=== PATIENT | male | born 1955 | race Caucasian/White ===

== ENCOUNTER 2017-05-31 08:52 | Day surgery (SDC) | payer SELFPAY ==
[2017-05-23 15:56] LABS: Absolute Lymphocytes (CBC) 1.4 K/uL (0.7-4.9); Absolute Monocytes 0.7 K/uL (0.1-1.3); Absolute Neutrophil 4.5 K/uL (1.8-8.0); Basophils % 0.8 % (0-1.3); Hematocrit 41.3 % (39.6-49.0); Lymphocytes % 19.3 % (15.3-44.8); MCH 28.9 pg (27.0-35.0); MCV 86.3 fL (80-100); MPV 7.2 fL (7.6-11.3); Monocytes % 8.9 % (3.3-12.3); RBC Red Blood Cell Count 4.78 M/uL (4.33-5.43)
[~2017-05-31 08:52] MED LIST: CEFAZOLIN/SWI 2gm 2 GM/20 ML SYR IV SCH
[2017-05-31] MEDS ORDERED: Ringers Lactate 1,000 ML IV ONE ×2 (09:16→11:27)
[2017-05-31] MEDS ORDERED: BUPIVACAINE 0.25% PF 10 ML VIAL ONE (09:39)
[2017-05-31] MEDS ORDERED: GLYCOPYRROLATE 0.2 MG/ML SYR ONE (09:51)
[2017-05-31] MEDS ORDERED: MIDAZOLAM HCL 2 MG/2 ML INJ ONE (09:51)
[2017-05-31] MEDS ORDERED: PROPOFOL 200 MG/20 ML VIAL IV ONE (09:51)
[2017-05-31] MEDS ORDERED: FENTANYL CITR 250 MCG/5 ML ONE (09:52)
[2017-05-31] MEDS ORDERED: LIDOCAINE 2% MPF 5 ML VIAL ONE (09:52)
[2017-05-31] MEDS ORDERED: ONDANSETRON 4 MG/2 ML VIAL ONE (09:52)
[2017-05-31] MEDS ORDERED: ROCURONIUM 50 MG/5 ML VIAL IV ONE ×3 (09:55→11:37)
[2017-05-31] MEDS ORDERED: NEOSTIGMINE 1 MG/ML -5 ML SYRINGE ONE (09:56)
--- NOTE | 2017-05-31 13:11 | P.OP ---
Preoperative diagnosis: Recurrent Ventral Hernia Postoperative diagnosis: Recurrent Ventral Hernia Primary procedure: Laparoscopic Ventral Hernia Secondary procedure: Laparoscopic Adhesiolysis <2hrs Anesthesia: GETA +Local Estimated blood loss: <10cc Specimen: None Findings: Large complex ventral hernia, thick fibrous adhesions Complications: None Transferred to: Recovery Room Condition: Good
[2017-05-31] MEDS: MEPERIDINE HCL 50 MG/ML AMP ONE ×2 (13:31→13:46)
[2017-05-31] MEDS ORDERED: MEPERIDINE HCL 25 MG/0.5 ML ONE (13:34)
[2017-05-31] MEDS: MIDAZOLAM HCL 2 MG/2 ML INJ ONE ×3 (13:38→14:01)
[2017-05-31] MEDS ORDERED: DEXAMETHASONE 4 MG/ML VIAL ONE (14:24)
[2017-05-31] MEDS ORDERED: KETOROLAC 30 MG/ML INJ ONE (14:24)
--- NOTE | 2017-05-31 14:26 | OP ---
Date of Procedure: 05/31/2017 Surgeon: Shmuel Bond MD, Preoperative Diagnosis: Recurrent complex ventral abdominal hernia. Postoperative Diagnosis: Recurrent complex ventral abdominal hernia. Procedure Performed: Laparoscopic ventral hernia repair with mesh. Secondary Procedure: Laparoscopic adhesiolysis, greater than 2 hours. Anesthesia: General endotracheal plus local. Estimated Blood Loss: Less than 10 cc. Specimen: None. Findings: Large complex ventral hernia and thick fibrous adhesions. Complications: None. Disposition: Transferred to recovery room in good condition. Procedure In Detail: After informed consent was obtained, the patient was brought to the operating r oom and prepped and draped in the usual fashion. After adequate anesthesia was achieved, a left uppe r quadrant incision was made after appropriately anesthetizing the skin and a 5-mm, 0-degree optical trocar was introduced into the abdomen without evidence of complication. Insufflation was obtained t o 15 mmHg at this time noted but there was no injury to vital structure upon entry to the abdomen. T here were thick fibrous adhesions immediately encountered, which required blunt dissection with the c amera lens itself until visualization could be complete. This continued until left trocar position c ould be seen in the left lower quadrant. After this was appropriately anesthetized, sharply incised, a 5-mm trocar was introduced in the abdomen without evidence of complication. Insufflation was main tained to 15 at this time. I then used the LigaSure device to bluntly and sharply take down signific ant adhesions for approximately 2 hours. I continued dissecting free all the way up to the complex v entral abdominal wall hernia in the midline, where a previous mesh was placed. I continued to dissec t around superficially, and in the epigastric position, I placed another 5 mm trocar under direct vis ualization without evidence of complication. I continued dissection around circumferentially until e ventually I placed a right upper quadrant 5 mm trocar under direct visualization without evidence of complication. I continued dissection down until I placed a right lower quadrant trocar under direct visualization without evidence of complication. I then up-sized to the left upper quadrant incision to a 15-mm trocar under direct visualization without evidence of complication. I continued the adhes iolysis till all the hernia tissue was taken down. There was no injury to vital structures and no woody wel injury appreciated during this. There was no spillage of any enteric contents. After the intest ine and omentum were returned to the normal anatomic position, I then skeletonized and cleaned off al l the hernias and sized them. They were found to be approximately 18 cm x approximately 15 cm. I th en found a 20/25-cm oval Ventralight ST mesh with Echo positioning system placed through the 15 mm la teral trocar and positioned to the center of the hernia defect and a small stab incision was made in the center of the hernia defect and the cord was brought up and inflated at this time. The mesh was then positioned appropriately and secured using securing ReliaTack absorbable fixation tacks circumfe rentially around and the left lateral 15 mm port was found to be in close proximity to the mesh, and therefore, it was removed at this time and the trocar site was closed with a Jd-Willem suture p assing using 0 Vicryl in an interrupted fashion. I removed the green balloon system after appropriat shaylee cutting it at the skin level through the inflation tubing to the left lower quadrant incision usi ng the 5 mm trocar as a sheath. After this was removed, re-insufflation was obtained and the area wa s inspected. The ReliaTack fixation device was then used to place a double crown fixation system nuzhat und circumferentially with good approximation of the mesh under 11 mmHg of insufflation. After this was performed, the area was inspected and found to be in good approximation circumferentially. The a bdomen was then completely desufflated under direct visualization without evidence of complication. All trocars were then removed. All skin incisions were copiously irrigated and closed with a 4-0 Mon ocryl in a running fashion. Dermabond placed over top. The patient tolerated the procedure well wit hout evidence of complication and transferred to PACU in good condition. All counts were correct at the end of the case. FARZANA/STEPHEN Voice ID: [id number] Report ID: [id number]
[2017-05-31] MEDS ORDERED: MEPERIDINE HCL 50 MG/ML AMP ONE (14:35)
[2017-05-31] MEDS ORDERED: HYDROCODONE/APAP 7.5/325 MG TAB ONE (16:02)
[2017-05-31 16:51] VITALS: BP 126/70; TEMP 97.8; O2SAT 95
== END 2017-05-31 16:43 | disposition home or self-care (01) ==
LOC: OR 08:52
PROVIDERS: ATTEND Surgery
PROC: 0DNW4ZZ Release Peritoneum, Percutaneous Endoscopic Approach (ICD-10-PCS; 2017-05-31)
PROC: 0WUF4JZ Supplement Abdominal Wall with Synthetic Substitute, Percutaneous Endoscopic Approach (ICD-10-PCS; principal; 2017-05-31 10:15)
DX: K43.2 Incisional hernia without obstruction or gangrene (principal); K66.0 Peritoneal adhesions (postprocedural) (postinfection); I10 Essential (primary) hypertension; G47.30 Sleep apnea, unspecified; E78.5 Hyperlipidemia, unspecified; E78.00 Pure hypercholesterolemia, unspecified; J45.909 Unspecified asthma, uncomplicated; K21.9 Gastro-esophageal reflux disease without esophagitis; Z90.49 Acquired absence of other specified parts of digestive tract; Z88.6 Allergy status to analgesic agent; Z80.42 Family history of malignant neoplasm of prostate
CPT/HCPCS: 36415; 80051; 82565; 84520; 85025; J0690; J2175; J2250; J2405; J2710

== ENCOUNTER 2019-02-08 09:24 | Emergency (ER) | payer OTHER ==
--- NOTE | 2019-02-08 10:20 | RAD REPORT ---
EXAM DESCRIPTION: CT - Stone Protocol - 02/08/2019 9:45 am CLINICAL HISTORY: Flank pain. left flank pain COMPARISON: Abdomen Pelvis W Contrast dated 04/17/2017 TECHNIQUE: Axial images were obtained without oral or IV contrast. Lack of contrast limits solid org an and vascular assessment. The [id number] spans the entirety of the system partially obscuring uppermost abdomen and lung bases. Coronal reformatted images were obtained and reviewed. All CT scans are performed using dose optimization technique as appropriate and may include automated exposure control or mA/KV adjustment according to patient size. FINDINGS: The lower lung cool are clear. Cholecystectomy clips. Imaged portions of the liver and spleen show no suspicious findings on non-contrast imaging. The panc reas and adrenal glands are normal. No pathologic lymphadenopathy in the abdomen or pelvis. No urinary tract stones or obstructive uropathy. No bowel obstruction, free air, free fluid or abscess. Postsurgical changes are present about the rec tosigmoid colon.The appendix is not visualized. Moderate lumbar degenerative changes. IMPRESSION: No urinary tract stones or obstructive uropathy.
--- NOTE | 2019-02-08 10:28 | ER ---
Nurse's Notes [facility] Name: Israel Amador Age: 63 yrs Sex: Male : 1955 Arrival Date: 02/08/2019 Time: 09:26 Bed 8 Private MD: Diagnosis: Low back pain Presentation: 02/08 09:35 Presenting complaint: Patient states: back pain 3-4 days ago, more on the lower left ca1 and radiates to the L leg. Has gotten worse today. "It hurts to bend when I put on my socks today". Transition of care: patient was not received from another setting of care. Onset of symptoms was February 05, 2019. Risk Assessment: Do you want to hurt yourself or someone else? Patient reports no desire to harm self or others. Initial Sepsis Screen: Does the patient meet any 2 criteria? No. Patient's initial sepsis screen is negative. Does the patient have a suspected source of infection? No. Patient's initial sepsis screen is negative. Care prior to arrival: None. 09:35 Method Of Arrival: Ambulatory ca1 09:35 Acuity: RUBY 3 ca1 Triage Assessment: 09:39 General: Appears in no apparent distress. uncomfortable, Behavior is calm, cooperative, ca1 appropriate for age. Pain: Complains of pain in left low back Pain radiates to left leg Pain currently is 9 out of 10 on a pain scale. Quality of pain is described as sharp, Pain began 4 days ago Is continuous. Pain: Aggravated by repositioning. EENT: No deficits noted. No signs and/or symptoms were reported regarding the EENT system. Neuro: Level of Consciousness is awake, alert, obeys commands, Oriented to person, place, time, situation, Appropriate for age. Cardiovascular: Heart tones S1 S2 present. Respiratory: Airway is patent Respiratory effort is even, unlabored, Respiratory pattern is regular, symmetrical, Breath sounds are clear bilaterally. GI: Abdomen is flat, non-distended, Bowel sounds present X 4 quads. Abd is soft and non tender X 4 quads. : No deficits noted. No signs and/or symptoms were reported regarding the genitourinary system. Derm: Skin is intact, is healthy with good turgor, Skin is pink, warm \\T\\ dry. Musculoskeletal: Circulation, motion, and sensation intact. Capillary refill < 3 seconds, Range of motion: intact in all extremities. Historical: - Allergies: 09:39 No Known Allergies; ca1 - PMHx: 09:39 High Cholesterol; Sleep Apnea; Hypertension; Prostate Cancer; ca1 - PSHx: 09:39 Cholecystectomy; Appendectomy; Colon Removed; ca1 - Immunization history:: Adult Immunizations up to date, Pneumococcal vaccine is not up to date, Flu vaccine is up to date. - Social history:: Smoking status: Patient/guardian denies using tobacco. - Ebola Screening: : Patient negative for fever greater than or equal to 101.5 degrees Fahrenheit, and additional compatible Ebola Virus Disease symptoms Patient denies exposure to infectious person Patient denies travel to an Ebola-affected area in the 21 days before illness onset No symptoms or risks identified at this time. Screenin:42 Abuse screen: Denies threats or abuse. Denies injuries from another. Nutritional ca1 screening: No deficits noted. Tuberculosis screening: No symptoms or risk factors identified. Tuberculosis screening: Never had TB. Fall Risk None identified. Assessment: 09:41 Reassessment: SEE TRIAGE NOTES. General:. Neuro: Level of Consciousness is awake, ca1 alert, obeys commands, Oriented to person, place, time, situation. 10:12 Reassessment: Patient appears in no apparent distress at this time. Patient is alert, ca1 oriented x 3, equal unlabored respirations, skin warm/dry/pink. Pending CT result. Reported pain med is helping. Pain scale 6/10. Vital Signs: 09:39 BP 158 / 92; Pulse 69; Resp 16 S; Pulse Ox 97% on R/A; Weight 108.86 kg (R); Height 6 ca1 ft. 1 in. (185.42 cm) (R); Pain 9/10; 10:14 BP 165 / 92; Pulse 62; Resp 17 S; Pulse Ox 95% on R/A; Pain 6/10; ca1 10:27 Pain 5/10; ca1 09:39 Body Mass Index 31.66 (108.86 kg, 185.42 cm) ca1 ED Course: 09:26 Patient arrived in ED. as 09:29 Kailey Muhammad FNP-C [facility]. kb 09:29 Kin Farley MD is Attending Physician. kb 09:29 Ami Trujillo RN is Primary Nurse. ca1 09:38 Triage completed. ca1 09:39 Arm band placed on right wrist. ca1 09:42 Patient has correct armband on for positive identification. Bed in low position. Call ca1 light in reach. Side rails up X 1. Pulse ox on. NIBP on. 09:42 No provider procedures requiring assistance completed. ca1 09:45 CT completed. Patient tolerated procedure well. Patient moved back from CT. mw3 09:46 CT Stone Protocol In Process Unspecified. EDMS 10:12 Urine collected: clean catch specimen, clear, Amount Voided: 45mL. ca1 10:31 Patient did not have IV access during this emergency room visit. ca1 Administered Medications: 09:55 Drug: TORadol 30 mg Route: IM; Site: right deltoid; ca1 10:27 Follow up: Pain 5/10 Adult; Response: No adverse reaction; Pain is decreased ca1 Outcome: : Discharge ordered by MD. kb 10:31 Discharged to home ambulatory. ca1 10:31 Condition: stable 10:31 Discharge instructions given to patient, Instructed on discharge instructions, follow up and referral plans. medication usage, Demonstrated understanding of instructions, follow-up care, medications, Prescriptions given X 2. 10:31 Patient left the ED. ca1 Signatures: Dispatcher [employer] EDMS Kailey Muhammad, DRAW OPERATOR-C DRAW OPERATOR-Franchesca Ramos Michelle mw3 Ami Trujillo RN RN ca1 Corrections: (The following items were deleted from the chart) 10:14 10:12 Reassessment: Patient appears in no apparent distress at this time. Patient is ca1 alert, oriented x 3, equal unlabored respirations, skin warm/dry/pink. Pending CT result ca1
--- NOTE | 2019-02-08 10:28 | EDPHYS ---
Physician Documentation [facility] Name: Israel Amador Age: 63 yrs Sex: Male : 1955 Arrival Date: 02/08/2019 Time: 09:26 Bed 8 Private MD: ED Physician Kin Farley HPI: 02/08 10:25 This 63 yrs old Male presents to ER via Ambulatory with complaints of Back kb Pain. 10:25 The patient presents with pain that is acute, with no known mechanism of injury. The kb symptoms are located in the left low back. Onset: The symptoms/episode began/occurred 4 day(s) ago. The pain does not radiate. Associated signs and symptoms: The patient has no apparent associated signs or symptoms. The problem was sustained from unknown cause. Modifying factors: The patient symptoms are alleviated by nothing, the patient symptoms are aggravated by bending. Severity of symptoms: At their worst the symptoms were moderate, in the emergency department the symptoms are unchanged. The patient has not experienced similar symptoms in the past. The patient has not recently seen a physician. Historical: - Allergies: 09:39 No Known Allergies; ca1 - PMHx: 09:39 High Cholesterol; Sleep Apnea; Hypertension; Prostate Cancer; ca1 - PSHx: 09:39 Cholecystectomy; Appendectomy; Colon Removed; ca1 - Immunization history:: Adult Immunizations up to date, Pneumococcal vaccine is not up to date, Flu vaccine is up to date. - Social history:: Smoking status: Patient/guardian denies using tobacco. - Ebola Screening: : Patient negative for fever greater than or equal to 101.5 degrees Fahrenheit, and additional compatible Ebola Virus Disease symptoms Patient denies exposure to infectious person Patient denies travel to an Ebola-affected area in the 21 days before illness onset No symptoms or risks identified at this time. ROS: 10:24 Constitutional: Negative for fever, chills, and weight loss, Neck: Negative for injury, kb pain, and swelling, Cardiovascular: Negative for chest pain, palpitations, and edema, Respiratory: Negative for shortness of breath, cough, wheezing, and pleuritic chest pain, Abdomen/GI: Negative for abdominal pain, nausea, vomiting, diarrhea, and constipation, : Negative for injury, bleeding, discharge, and swelling, MS/Extremity: Negative for injury and deformity, Skin: Negative for injury, rash, and discoloration, Neuro: Negative for headache, weakness, numbness, tingling, and seizure. 10:24 Back: Positive for pain at rest, pain with movement, of the left low back. Exam: 10:24 Constitutional: This is a well developed, well nourished patient who is awake, alert, kb and in no acute distress. Head/Face: Normocephalic, atraumatic. Chest/axilla: Normal chest wall appearance and motion. Nontender with no deformity. No lesions are appreciated. Cardiovascular: Regular rate and rhythm with a normal S1 and S2. No gallops, murmurs, or rubs. Normal PMI, no JVD. No pulse deficits. Respiratory: Lungs have equal breath sounds bilaterally, clear to auscultation and percussion. No rales, rhonchi or wheezes noted. No increased work of breathing, no retractions or nasal flaring. Abdomen/GI: Soft, non-tender, with normal bowel sounds. No distension or tympany. No guarding or rebound. No evidence of tenderness throughout. Skin: Warm, dry with normal turgor. Normal color with no rashes, no lesions, and no evidence of cellulitis. MS/ Extremity: Pulses equal, no cyanosis. Neurovascular intact. Full, normal range of motion. Neuro: Awake and alert, GCS 15, oriented to person, place, time, and situation. Cranial nerves II-XII grossly intact. Motor strength 5/5 in all extremities. Sensory grossly intact. Cerebellar exam normal. Normal gait. 10:24 Back: pain, that is moderate, ROM is painful, "bending over to put shoes on". normal spinal alignment noted, vertebral tenderness, is not appreciated. Vital Signs: 09:39 BP 158 / 92; Pulse 69; Resp 16 S; Pulse Ox 97% on R/A; Weight 108.86 kg (R); Height 6 ca1 ft. 1 in. (185.42 cm) (R); Pain 9/10; 10:14 BP 165 / 92; Pulse 62; Resp 17 S; Pulse Ox 95% on R/A; Pain 6/10; ca1 10:27 Pain 5/10; ca1 09:39 Body Mass Index 31.66 (108.86 kg, 185.42 cm) ca1 MDM: 09:29 Patient medically screened. kb 10:24 Data reviewed: vital signs, nurses notes. Data interpreted: Pulse oximetry: on room air kb is 95 %. Interpretation: normal. Counseling: I had a detailed discussion with the patient and/or guardian regarding: the historical points, exam findings, and any diagnostic results supporting the discharge/admit diagnosis, radiology results, the need for outpatient follow up, a family practitioner, to return to the emergency department if symptoms worsen or persist or if there are any questions or concerns that arise at home. 02/08 10:13 Order name: Urine Dipstick--Ancillary (enter results) eb 02/08 09:35 Order name: CT Stone Protocol; Complete Time: 10:24 kb 02/08 09:35 Order name: Urine Dipstick-Ancillary (obtain specimen); Complete Time: 10:10 kb Administered Medications: 09:55 Drug: TORadol 30 mg Route: IM; Site: right deltoid; ca1 10:27 Follow up: Pain 5/10 Adult; Response: No adverse reaction; Pain is decreased ca1 Disposition: 17:41 Co-signature as Attending Physician, Kin Farley MD Did not see or evaluate the ps1 patient. Signing the chart for administrative purposes. Not an endorsement of care provided. . Disposition: 02/08/19 10:27 Discharged to Home. Impression: Low back pain. - Condition is Stable. - Discharge Instructions: Back Pain, Adult, [id number], Back Exercises, [id number]. - Prescriptions for Cyclobenzaprine 10 mg Oral Tablet - take 1 tablet by ORAL route every 8 hours As needed; 21 tablet. Diclofenac Sodium 75 mg Oral Tablet, Delayed Release (E.C.) - take 1 tablet by ORAL route 2 times per day As needed; 30 tablet. - Medication Reconciliation Form, Thank You Letter, Antibiotic Education, Prescription Opioid Use form. - Follow up: Emergency Department; When: As needed; Reason: Worsening of condition. Follow up: Private Physician; When: 2 - 3 days; Reason: Recheck today's complaints, Continuance of care, Re-evaluation by your physician. Signatures: Dispatcher [employer] Kailey Kang, Kin Bergeron MD MD ps1 Ami Trujillo RN RN ca1 Corrections: (The following items were deleted from the chart) 10:31 10:27 02/08/2019 10:27 Discharged to Home. Impression: Low back pain. Condition is ca1 Stable. Forms are Medication Reconciliation Form, Thank You Letter, Antibiotic Education, Prescription Opioid Use. Follow up: Emergency Department; When: As needed; Reason: Worsening of condition. Follow up: Private Physician; When: 2 - 3 days; Reason: Recheck today's complaints, Continuance of care, Re-evaluation by your physician. kb
[2019-02-08 10:46] VITALS: BP 165/92; O2SAT 95
[2019-02-08 11:48] LABS: Urine Blood NEGATIVE (NEG); Urine Glucose NEGATIVE (NEG); Urine Protein NEGATIVE (NEG); Urine Specific Gravity 1.025 (1.005-1.030); Urine pH 5.5 (5.0-7.0)
== END 2019-02-08 10:31 | disposition home or self-care (01) ==
LOC: ER 09:24
DX: M54.5 Low back pain (principal)
CPT/HCPCS: 74176; 76377; 81003; 96372; 99284